=== PATIENT | female | born 1970 | race Caucasian/White ===

== ENCOUNTER 2016-08-14 19:57 | Emergency (ER) | payer OTHER ==
[~2016-08-14] VITALS: Ht 162.6 cm; Wt 68.5 kg
[2016-08-14 21:56] VITALS: BP 112/64
== END 2016-08-14 21:56 | disposition home or self-care (01) ==
LOC: ED 19:57
DX: J45.909 Unspecified asthma, uncomplicated (principal); K58.9 Irritable bowel syndrome, unspecified; J02.9 Acute pharyngitis, unspecified; Z88.2 Allergy status to sulfonamides; Z88.8 Allergy status to other drugs, medicaments and biological substances
CPT/HCPCS: J2930; J7620

== ENCOUNTER 2016-09-23 10:58 | Emergency (ER) | payer OTHER ==
[2016-09-23 15:54] VITALS: BP 95/52
== END 2016-09-23 15:54 | disposition home or self-care (01) ==
LOC: ED 10:58
DX: R51 Headache (principal); J45.909 Unspecified asthma, uncomplicated
CPT/HCPCS: J0780; J1200

== ENCOUNTER 2019-01-28 10:59 | Emergency (ER) | payer OTHER ==
[~2019-01-28] VITALS: Ht 162.6 cm; Wt 64.0 kg
[2019-01-28 11:08] VITALS: Ht 162.6 cm; Wt 64.0 kg
[2019-01-28 14:20] VITALS: BP 96/46
== END 2019-01-28 14:20 | disposition home or self-care (01) ==
LOC: ED 10:59
DX: S97.81XA Crushing injury of right foot, initial encounter (principal); J45.909 Unspecified asthma, uncomplicated; Z88.2 Allergy status to sulfonamides; Z88.8 Allergy status to other drugs, medicaments and biological substances; W18.30XA Fall on same level, unspecified, initial encounter; Y93.89 Activity, other specified; Y92.89 Other specified places as the place of occurrence of the external cause; Y99.8 Other external cause status
CPT/HCPCS: Q0092

== ENCOUNTER 2019-05-12 19:29 | Emergency (ER) | payer SELFPAY ==
[~2019-05-12] VITALS: Ht 162.6 cm; Wt 66.5 kg
[2019-05-12 19:31] VITALS: Ht 162.6 cm; Wt 66.5 kg
[2019-05-12 21:06] VITALS: BP 106/55
== END 2019-05-12 21:06 | disposition home or self-care (01) ==
LOC: ED 19:29
DX: J45.909 Unspecified asthma, uncomplicated (principal); Z88.2 Allergy status to sulfonamides; Z91.041 Radiographic dye allergy status
CPT/HCPCS: J7512; J7620; Q0092